=== PATIENT | male | born 1975 | race Caucasian/White ===

== ENCOUNTER 2019-01-22 12:00 | Emergency (ER) | payer BC ==
[2019-01-22 12:08] VITALS: BP 145/93
--- NOTE | 2019-01-22 12:20 | ER Document Report ---
ED Medical Screen (RME) - General Chief Complaint: Needle Stick Exposure Stated Complaint: NEEDLE STUCK IN LEG Time Seen by Provider: 01/22/19 12:09 Notes: Patient is a 43-year-old male who presents to the emergency department with a chief complaint of a needle stuck in his right upper thigh. He is prescribed testosterone and he was injecting his testosterone in his thigh with a new needle because he is visiting the area and used a clean needle from someone else. When he went to pull the needle out, there was just the hub attached to the syringe. Exam: Needle prick noted to right anterior thigh. I consulted Dr. Merchant, he is recommending x-ray at this time. I have greeted and performed a rapid initial assessment of this patient. A comprehensive ED assessment and evaluation of the patient, analysis of test results and completion of medical decision making process will be conducted by an additional ED providers. TRAVEL OUTSIDE OF THE [place] IN LAST 30 DAYS: No - Related Data Allergies/Adverse Reactions: No Known Allergies Allergy (Verified 01/22/19 12:01) Physical Exam - Vital signs Vitals: Temp Pulse Resp BP Pulse Ox 97.8 F 79 18 145/93 H 97 01/22/19 12:06 01/22/19 12:06 01/22/19 12:06 01/22/19 12:06 01/22/19 12:06 Course - Vital Signs Vital signs: Temp Pulse Resp BP Pulse Ox 97.8 F 79 18 145/93 H 97 01/22/19 12:06 01/22/19 12:06 01/22/19 12:06 01/22/19 12:06 01/22/19 12:06
--- NOTE | 2019-01-22 13:16 | RADIOLOGY REPORT (SQ) ---
EXAM DESCRIPTION: FEMUR RIGHT COMPLETED DATE/TIME: 01/22/2019 1:08 pm REASON FOR STUDY: needle stuck in leg COMPARISON: None. NUMBER OF VIEWS: 5 views. TECHNIQUE: 5 radiographic images acquired of the right femur to include hip and knee in at least one projection. LIMITATIONS: None. FINDINGS: MINERALIZATION: Normal. BONES: No acute fracture. No worrisome bone lesions. SOFT TISSUES: No obvious swelling or foreign body. OTHER: No other significant finding. IMPRESSION: NORMAL RIGHT FEMUR. TECHNICAL DOCUMENTATION: JOB ID: [id number] [email or web address]- All Rights Reserved Reading location - IP/workstation name: [email or web address]
--- NOTE | 2019-01-22 13:24 | ER Document Report ---
ED General - General Chief Complaint: Needle Stick Exposure Stated Complaint: NEEDLE STUCK IN LEG Time Seen by Provider: 01/22/19 12:09 Information source: Patient Notes: HPI: Patient is a 43-year-old male that was injecting his normal testosterone into his right thigh and believes that the needle broke off. He denies any pain, swelling, or fevers. ROS: See HPI All other review of systems reviewed and otherwise negative Reviewed vital signs and nursing note as charted by RN. PHYSICAL EXAM: CONSTITUTIONAL: Alert and oriented and responds appropriately to questions. Well-appearing; well-nourished EXT: Patient has no swelling, erythema, redness, or induration to the injection site TRAVEL OUTSIDE OF THE [place] IN LAST 30 DAYS: No - Related Data Allergies/Adverse Reactions: No Known Allergies Allergy (Verified 01/22/19 12:01) Past Medical History - Social History Smoking Status: Never Smoker Family History: Reviewed & Not Pertinent Patient has suicidal ideation: No Patient has homicidal ideation: No Renal/ Medical History: Denies: Hx Peritoneal Dialysis Physical Exam - Vital signs Vitals: Temp Pulse Resp BP Pulse Ox 97.8 F 79 18 145/93 H 97 01/22/19 12:06 01/22/19 12:06 01/22/19 12:06 01/22/19 12:06 01/22/19 12:06 Course - Re-evaluation Re-evalutation: 01/22/19 13:23 Given the history and physical examination, we did perform an x-ray of the thigh showing no obvious foreign bodies. After further inspection of the needle it appears that the patient has been using a new needle that retracts after injection. We have found the needle in the syringe. Patient will be discharged home at this time. - Vital Signs Vital signs: Temp Pulse Resp BP Pulse Ox 97.8 F 79 18 145/93 H 97 01/22/19 12:06 01/22/19 12:06 01/22/19 12:06 01/22/19 12:06 01/22/19 12:06 Discharge - Discharge Clinical Impression: Right leg pain Condition: Good Disposition: HOME, SELF-CARE Additional Instructions: Come back immediately with any pain, swelling, fever, vomiting, or any other acute problems.
== END 2019-01-22 13:30 | disposition home or self-care (01) ==
LOC: ER 12:00
DX: M79.604 Pain in right leg (principal)
CPT/HCPCS: 99282